=== PATIENT | female | born 1945 | race Caucasian/White ===

== ENCOUNTER 2022-12-04 08:47 | Emergency (ER) | payer MEDICARE, SELFPAY ==
[2022-12-04 08:58] VITALS: BP 120/41; PULSE 66; RESP 20; TEMP 36.4; O2SAT 100
--- NOTE | 2022-12-04 09:03 | ED.SKABFB ---
HPI - Skin/Abscess/Foreign Bdy General Chief complaint: Skin/Abscess/Foreign Body Stated complaint: Skin Problem/Both Legs Source: patient, family and RN notes reviewed History of Present Illness HPI narrative: 76 yo F presents to urgent care with daughter at side. Daughter states pt normally has darker red lower extremities but this past weekend noticed the redness was getting darker. Pt was recently treated for a resistent UTI x 2 weeks with IV ABX via PICC line and stopped those around 11/25. Pt was recently given a new wheelchair where she continues to knick her lower extremities. Denies any fevers, chills, chest pain, SOB, or vomiting. Related Data Home Medications Medication Instructions Recorded Confirmed Mucinex 12/04/22 carbidopa-levodopa 12/04/22 lisinopril 12/04/22 metformin 12/04/22 Allergies Allergy/AdvReac Type Severity Reaction Status Date / Time acetaminophen Allergy Unknown Verified 12/04/22 09:09 [From Darvocet-N] propoxyphene Allergy Unknown Verified 12/04/22 09:09 [From Darvocet-N] Review of Systems Review of Systems: Pertinent positives and pertinent negatives per HPI. [facility] Comments At the time of my signature, I reviewed and agree with the nursing past medical, surgical, social, and family history. There is no relevant family history pertinent to the patient complaint. Exam Narrative: GENERAL: This is a well-nourished, well-developed patient, in no apparent distress. HEAD: normocephalic, atraumatic. EYES: Sclera clear/white. Vision is grossly intact. EARS: External ears normal, auditory canals clear and without drainage. Hearing grossly intact. NOSE: External nose normal with no obvious nasal discharge, nares without redness, no rhinorrhea. THROAT: Mucous membranes moist, posterior pharynx clear. NECK: Neck supple, non-tender without lymphadenopathy, masses or thyromegaly. CARDIOVASCULAR: Regular rate RESPIRATORY: Clear to auscultation. Breath sounds equal bilaterally. No wheezes, rales, or rhonchi. SKIN: erythremic and purplish skin noted to BLE, darker on the left. Tender right lower larsen. Abrasion to right anterior lower leg. <0.5 cm blister to left lower larsen. no drainage or weeping. 2+ edema to BLE. erythremia is not circumferential. NEURO: awake, alert, and oriented to person, place and time. There were no obvious focal neurologic abnormalities. Course Course Level of Care: Express Care Visit Vital Signs Vital signs: Vital Signs Temperature 97.5 F L 12/04/22 08:58 Pulse Rate 66 12/04/22 08:58 Respiratory Rate 20 12/04/22 08:58 Blood Pressure 120/41 L 12/04/22 08:58 Pulse Oximetry 100 12/04/22 08:58 Oxygen Delivery Room Air 12/04/22 08:58 Temperature 97.5 F L 12/04/22 08:58 Pulse Rate 66 12/04/22 08:58 Respiratory Rate 20 12/04/22 08:58 Blood Pressure 120/41 L 12/04/22 08:58 Pulse Oximetry 100 12/04/22 08:58 Oxygen Delivery Room Air 12/04/22 08:58 Reviewed MDM - Skin/Abscess/Foreign Bdy MDM Narrative Medical decision making narrative: Clean with soap and water only; Avoid using alcohol and peroxide. Elevate the affected area if possible Alternate Tylenol/ibuprofen for as needed for pain Acetaminophen(Tylenol) 650-1000mg every 4-6hours with max of 4000mg/day. Nonsteroidal anti-inflammatory agent (NSAIDs-ibuprofen): 400mg every 4-6hours with max 2400mg/day Take antibiotic until it's gone. Please schedule a follow up visit with your personal physician for further evaluation and treatment within 3-5days OR if your symptoms persist, change or worsen significantly before you can contact your personal physician then please, without delay, go to the emergency department for further evaluation. Differential Diagnosis Differential diagnosis: Likely viral exanthem, cellulitis and contact dermatitis Critical Care Time Critical Care Time Critical Care Time: No Discharge Plan Discharge Clinical Impression
== END 2022-12-04 09:33 | disposition home or self-care (01) ==
PROVIDERS: Emergency Provider Nurse Practitioner Family
DX: L03.115 Cellulitis of right lower limb (principal); I10 Essential (primary) hypertension; E11.9 Type 2 diabetes mellitus without complications
CPT/HCPCS: 99213; G0463

== ENCOUNTER 2022-12-27 15:39 | Emergency (ER) | payer MEDICARE, SELFPAY ==
[2022-12-27 15:51] VITALS: BP 115/58; PULSE 69; RESP 18; TEMP 36.6; O2SAT 100
--- NOTE | 2022-12-27 15:54 | ED.EXTPRO ---
HPI - Extremity Problem General Stated complaint: Right Leg Pain Source: patient and RN notes reviewed Mode of arrival: ambulatory Limitations: no limitations Related Data Home Medications Medication Instructions Recorded Confirmed Mucinex 12/04/22 carbidopa-levodopa 12/04/22 lisinopril 12/04/22 metformin 12/04/22 Allergies Allergy/AdvReac Type Severity Reaction Status Date / Time acetaminophen Allergy Unknown Verified 12/04/22 09:09 [From Darvocet-N] propoxyphene Allergy Unknown Verified 12/04/22 09:09 [From Darvocet-N] Review of Systems Review of Systems: CONSTITUTIONAL: Denies malaise, chills, sweats, or fever. CARDIOVASCULAR: Denies chest pain, palpitations, or edema. RESPIRATORY: Denies cough or dyspnea. SKIN: Denies rash or itching, bruising, redness, swelling. MUSCULOSKELETAL: Reports NEUROLOGIC: Denies numbness, weakness All systems reviewed & are unremarkable except as noted in HPI and below PMFSH Comments At time of signature, agree with nursing past medical, surgical, social and family history. There is no relevant family history pertinent to the presenting complaint Exam Narrative: GENERAL: Well-appearing, well-nourished, and in no acute distress. HEAD: Normocephalic, atraumatic. EYES: PERRLA, conjunctivae clear NECK: Supple. CHEST: Speaks in full sentences. No respiratory distress. HEART: Regular rate and rhythm. Normal and equal peripheral pulses. EXTREMITIES: [Xxx] has normal strength and sensation, normal range of motion. No edema or ecchymosis. 5/5 strength with [xxx] flexion and extension. Normal sensation with sensitivity to light touch and pain. No point tenderness. No open wounds, no skin tenting, no devitalized tissue or atrophy, no trophic changes, no obvious deformity, alignment normal, nearby joints and structures intact. Distal pulses palpable and equal bilaterally, skin warm, dry, pink. Capillary refill less than 3 seconds. SKIN: Warm, dry, no rash. NEURO: Alert and oriented x3. PSYCH: Normal mood and affect Course Course Emergency Course: Patient is aware of diagnosis, understands and agrees to treatment plan. Anticipatory guidance given. Patient agrees to follow-up as directed and is aware of reasons to seek care at the emergency department. Portions of this record may have been created with voice recognition software Level of Care: Express [facility] Emergency Department Visit Vital Signs Vital signs: Vital Signs Temperature 98 F 12/27/22 15:51 Pulse Rate 69 12/27/22 15:51 Respiratory Rate 18 12/27/22 15:51 Blood Pressure 115/58 L 12/27/22 15:51 Pulse Oximetry 100 12/27/22 15:51 Oxygen Delivery Room Air 12/27/22 15:51 Temperature 98 F 12/27/22 15:51 Pulse Rate 69 12/27/22 15:51 Respiratory Rate 18 12/27/22 15:51 Blood Pressure 115/58 L 12/27/22 15:51 Pulse Oximetry 100 12/27/22 15:51 Oxygen Delivery Room Air 12/27/22 15:51 Reviewed. Critical Care Time Critical Care Time Critical Care Time: No Discharge Plan Discharge Prescriptions: No Action Mucinex carbidopa-levodopa lisinopril metformin cephalexin 500 mg capsule 500 mg PO Q12H 7 Days Qty: 14 0RF Follow-up/Referrals: Juliann,NATANAEL Damico [Primary Care Provider] -
--- NOTE | 2022-12-27 15:56 | ED.SKABFB ---
HPI - Skin/Abscess/Foreign Bdy General Chief complaint: Skin/Abscess/Foreign Body Stated complaint: Right Leg Pain Time Seen by Provider: 12/27/22 15:57 Source: patient and RN notes reviewed Mode of arrival: ambulatory Limitations: dementia History of Present Illness HPI narrative: 77-year-old female with history of diabetes presents with concern for redness to her right lower leg. She reports she scratched her leg on her wheelchair several days ago and developed a skin tear. She reports she has redness, tenderness now surrounding the skin tear. She has a history of cellulitis. She was treated for cellulitis of the right lower leg with cephalexin, she reports she feels that that infection cleared up. She denies any point early drainage from the area. MD complaint: other (Redness) Related Data Home Medications Medication Instructions Recorded Confirmed Mucinex 12/04/22 carbidopa-levodopa 12/04/22 lisinopril 12/04/22 metformin 12/04/22 Allergies Allergy/AdvReac Type Severity Reaction Status Date / Time acetaminophen Allergy Unknown Verified 12/27/22 16:00 [From Darvocet-N] propoxyphene Allergy Unknown Verified 12/27/22 16:00 [From Darvocet-N] Review of Systems Review of Systems: CONSTITUTIONAL: Denies malaise, chills, sweats, or fever. EYES: Denies redness, or discharge. ENT: Denies rhinorrhea, congestion, swollen lips, swollen tongue CARDIOVASCULAR: Denies chest pain, palpitations, or edema. RESPIRATORY: Denies cough or dyspnea. GASTROINTESTINAL: Denies abdominal pain, nausea, vomiting SKIN: Reports redness, swelling tenderness surrounding a skin tear on the right anterior leg. Denies purulent drainage, vesicles, bullae, numbness, pain beyond proportion MUSCULOSKELETAL: Denies joint pain or myalgia. NEUROLOGIC: Denies headache. All systems reviewed & are unremarkable except as noted in HPI and below PMFSH Comments At time of signature, agree with nursing past medical, surgical, social and family history. There is no relevant family history pertinent to the presenting complaint Exam Narrative: GENERAL: Well-appearing, well-nourished, and in no acute distress. HEAD: Normocephalic, atraumatic. EYES: PERRLA, conjunctivae clear ENT: Mucous membranes moist. NECK: Supple. No lymphadenopathy CHEST: Clear to auscultation. No respiratory distress. HEART: Regular rate and rhythm. SKIN: Warm, dry. Erythema, induration, tenderness, warmth with sharp margins noted surrounding a skin tear to the right anterior lower leg, the skin tear has beefy pain tissue bed without purulent drainage. No vesicles, bullae, necrosis, ecchymosis, crepitus noted. NEURO: Alert and oriented x3. PSYCH: Normal mood and affect Course Course Emergency Course: Patient is aware of diagnosis, understands and agrees to treatment plan. Anticipatory guidance given. Patient agrees to follow-up as directed and is aware of reasons to seek care at the emergency department. Portions of this record may have been created with voice recognition software Level of Care: Express Care Visit Vital Signs Vital signs: Vital Signs Temperature 98 F 12/27/22 15:51 Pulse Rate 69 12/27/22 15:51 Respiratory Rate 18 12/27/22 15:51 Blood Pressure 115/58 L 12/27/22 15:51 Pulse Oximetry 100 12/27/22 15:51 Oxygen Delivery Room Air 12/27/22 15:51 Temperature 98 F 12/27/22 15:51 Pulse Rate 69 12/27/22 15:51 Respiratory Rate 18 12/27/22 15:51 Blood Pressure 115/58 L 12/27/22 15:51 Pulse Oximetry 100 12/27/22 15:51 Oxygen Delivery Room Air 12/27/22 15:51 Reviewed. MDM - Skin/Abscess/Foreign Bdy MDM Narrative Medical decision making narrative: Does not appear at this time to be erythema multiforme, bullous, SJS, TEN; no evidence at this time to suggest RMSF, NSTI, endocarditis or Lyme disease; patient looks well, nontoxic and is tolerating oral intake; no neurologic signs or symptoms; no hea
== END 2022-12-27 16:20 | disposition home or self-care (01) ==
PROVIDERS: Emergency Provider Nurse Practitioner; PCP Physician Assistant
DX: L03.115 Cellulitis of right lower limb (principal); G20 Parkinson's disease; I10 Essential (primary) hypertension; E11.9 Type 2 diabetes mellitus without complications
CPT/HCPCS: 99213; G0463

== ENCOUNTER 2023-02-09 15:10 | Emergency (ER) | payer MEDICARE, SELFPAY ==
--- NOTE | ~2023-02-09 | XR_ITS ---
EXAM: XR hand RT min 3V DATE: 02/09/2023 16:18 HISTORY: SLAMMED IN A WOOD DOOR 02/09/23. ATTN:3-5 FINGERS . COMPARISON: None available. FINDINGS: Rings, which could not be removed, and overlapping fingers and the lateral view obscure so me osseous detail. Normal mineralization. No fracture or dislocation. No lytic or blastic lesion. Mod erate polyarticular osteoarthritis. No erosion or periosteal change. Soft tissues within normal limit s. IMPRESSION: No acute osseous finding in the right hand. Reviewed, dictated and finalized at location K.
[2023-02-09 15:25] VITALS: BP 118/56; PULSE 70; RESP 18; TEMP 36.3; O2SAT 100
--- NOTE | 2023-02-09 17:55 | ED.GENADULT ---
HPI - General Adult General Chief complaint: Extremity Injury, Upper Stated complaint: right hand smashed in car door Source: patient Mode of arrival: ambulatory Limitations: no limitations History of Present Illness HPI narrative: Patient presents for evaluation of an injury to the right hand. She indicates that she got her hand closed in the door at her place of residence earlier today. She now has bruising to the 3rd, 4th, 5th digits of the right hand. She also has a small laceration to the 3rd digit of the right hand and pain in the 4th and 5th digits of the right hand. Denies loss of ROM. No paresthesias. She is diabetic but a1c is less than 6 on metformin alone. She is right hand dominant. She believes she is UTD on tetanus. She states she is not having a good day as her earlier today. Related Data Home Medications Medication Instructions Recorded Confirmed carbidopa-levodopa 1 tablet PO DIRECTED 12/04/22 02/09/23 lisinopril 1 tab-cap PO DIRECTED 12/04/22 metformin 1 tab-cap PO DAILY 12/04/22 Allergies Allergy/AdvReac Type Severity Reaction Status Date / Time acetaminophen Allergy Unknown Verified 02/09/23 15:39 [From Darvocet-N] propoxyphene Allergy Unknown Verified 02/09/23 15:39 [From Darvocet-N] Review of Systems Review of Systems: CONSTITUTIONAL: Denies fever, chills, or sweats. EYES: Denies visual changes, redness, or discharge. ENT: Denies rhinorrhea, congestion, sore throat, or otalgia. CARDIOVASCULAR: Denies chest pain, palpitations, or edema. RESPIRATORY: Denies cough or dyspnea. GASTROINTESTINAL: Denies abdominal pain, nausea, vomiting, or diarrhea. GENITOURINARY: Denies dysuria or hematuria. SKIN: Reports bruising to the 3rd, 4th, 5th digits the right hand. Reports laceration to 3rd digit of the right hand. MUSCULOSKELETAL: Reports pain to the 3rd and 4th digits of the right hand. PSYCHIATRIC: Denies anxiety or depression. [facility] Past Medical History Medical History Diabetes Parkinsons Surgical History Surgical History No pertinent past surgical history Family History Family History Mother Family history non-contributory Social History Social History (Updated 02/09/23 @ 17:59 by Elvis Kyle [facility]) Substance use: never Living arrangements: assisted living Gender identity (if verbalized by the patient): Female Sexual Orientation (if Verbalized by the Patient): Straight or Heterosexual Spiritual care concerns: No Exam Narrative: GENERAL: Well-appearing, well-nourished, and in no acute distress. HEAD: Normocephalic, atraumatic. EYES: PERRLA and EOMI. ENT: Nares clear, no rhinorrhea or epistaxis. Mucous membranes moist. Oropharynx without tonsillar hypertrophy exudate or other lesions. Bilateral TMs pearly rodriguez nonbulging NECK: Supple. No adenopathy or masses. No carotid bruits or JVD CHEST: Clear to auscultation. No respiratory distress. No wheezes rales or rhonchi HEART: Regular rate and rhythm. No murmur heard. Normal peripheral pulses. ABDOMEN: Soft, nontender, nondistended, normal active bowel sounds. EXTREMITIES: Swelling present to the 3rd and 4th digits the right hand. There is tenderness over the distal phalanx SKIN: There is a 1 cm linear laceration in a transverse formation to palmar aspect of 3rd digit of right hand overlying the PIP joint. There is ecchymosis noted to the 3rd, 4th, 5th digits the right hand. NEURO: No focal deficits. Alert and oriented x3. PSYCH: Normal mood and affect. Course Course Emergency Course: This is a 77-year-old female who presented for evaluation of right hand injury. X-ray was negative for fracture. Antibiotic ointment applied to laceration site of 3rd digit of the right hand. [place]
== END 2023-02-09 18:08 | disposition home or self-care (01) ==
PROVIDERS: Emergency Provider Nurse Practitioner; PCP Physician Assistant
DX: S60.221A Contusion of right hand, initial encounter (principal); W23.0XXA Caught, crushed, jammed, or pinched between moving objects, initial encounter; E11.9 Type 2 diabetes mellitus without complications; G20 Parkinson's disease
CPT/HCPCS: 29130; 73130; 99213; G0463